=== PATIENT | male | born 1950 | race Caucasian/White ===

== ENCOUNTER 2021-02-09 20:51 | Emergency (ER) | payer OTHER, MEDICARE ==
[~2021-02-09 20:51] MED LIST: Iopamidol 370 76% 100 ML VIAL ONE
[2021-02-09 21:14] LABS: #Eosinphils 0.5 thou/uL (0.0-0.7); #Monocytes 0.7 thou/uL (0.11-0.59); %Basophils 0.3 % (0.0-1.0); %Eosinophils 5.2 % (0.0-10.0); %Lymphocytes 32.7 % (21.0-51.0); %Neutrophils 53.9 % (42.0-75.0); Hemoglobin 15.5 g/dL (14.0-18.0); Mean Corpuscular HGB CONC 35.1 g/dL (32.0-36.0); Mean Corpuscular Hemoglobin 31.5 pg (27.0-31.0); Mean Corpuscular Volume 89.8 fL (78.0-98.0); Mean Platelet Volume 8.8 fL (7.4-10.4); Platelet Count 231 thou/uL (130-400); RBC Distribution Width 12.4 % (11.5-14.5); Red Blood Cell (RBC) Count 4.92 mill/uL (4.70-6.10); White Blood Cell (WBC) Count 9.3 thou/uL (4.8-10.8)
[2021-02-09] MEDS ORDERED: Fentanyl 100 MCG/2 ML VIAL ONE (22:23)
[2021-02-09 22:27] LABS: Albumin 4.2 g/dL (3.4-4.8)
[2021-02-09 22:28] LABS: Chloride 102 mmol/L (98-107); Sodium 137 mmol/L (136-145)
[2021-02-09 22:29] LABS: Calcium 8.9 mg/dL (7.8-10.44); Glucose 172 mg/dL (80-115)
[2021-02-09 22:30] LABS: Globulin 2.5 g/dL (2.4-3.5); Protein, Total 6.7 g/dL (5.8-8.1)
[2021-02-09 22:31] LABS: Anion Gap 13 mmol/L (10-20); Bilirubin, Total 0.7 mg/dL (0.2-1.2); Carbon Dioxide 26 mmol/L (23-31)
[2021-02-09 22:32] LABS: Alkaline Phosphatase 52 U/L (40-110)
[2021-02-09 22:32] LABS: Bacteria/HPF None Seen HPF (None Seen); Bilirubin Negative (Negative); Blood, Urine Negative (Negative); Calcium Oxalate Crystals 1+ HPF (None Seen); Clarity Clear (Clear); Glucose, Urine (Dipstick) 70 mg/dL (Negative); Ketone, Urine Negative (Negative); Leukocyte Negative Leu/uL (Negative); Mucous/LPF Rare LPF (<2+); Nitrite Negative (Negative); Protein, Urine (Dipstick) 50 mg/dL (Neg-Trace); RBC/HPF 0-3 HPF (0-3); Specific Gravity, Urine 1.042 (1.002-1.036); Squamous Epithelial None Seen HPF (0-3); Urobilinogen Normal mg/dL (Less than 2); WBC/HPF 0-3 HPF (0-3)
[2021-02-09 22:33] LABS: Calc. Creatinine Clearance 0 mL/min (70-130)
[2021-02-09 22:34] LABS: BUN (Urea Nitrogen) 14 mg/dL (8.4-25.7)
[2021-02-09 22:35] LABS: ALT (SGPT) 31 U/L (8-55); AST (SGOT) 32 U/L (5-34)
[2021-02-09 22:36] LABS: Lipase 15 U/L (8-78)
[2021-02-09] MEDS ORDERED: Ketorolac Tromethamine 30 MG/ML VIAL ONE (23:18)
== END 2021-02-09 23:24 | disposition home or self-care (01) ==
LOC: ERS 20:51
DX: S50.811A Abrasion of right forearm, initial encounter (principal); S09.90XA Unspecified injury of head, initial encounter; M54.50 Low back pain, unspecified; I10 Essential (primary) hypertension; E11.9 Type 2 diabetes mellitus without complications; E78.00 Pure hypercholesterolemia, unspecified; V89.2XXA Person injured in unspecified motor-vehicle accident, traffic, initial encounter; W22.10XA Striking against or struck by unspecified automobile airbag, initial encounter; Z79.899 Other long term (current) drug therapy
CPT/HCPCS: 36415; 70450; 71045; 71260; 72125; 72170; 74177; 80053; 81003; 81015; 83690; 85025; 93005; 96374; 96375; G0390; J1885; J3010; Q9967

== ENCOUNTER 2021-08-20 14:00 | Outpatient (CLI) | payer MEDICARE ==
[2021-08-20 15:19] LABS: Estimated GFR-MDRD - POC Greater than 90
== END 2021-08-20 14:01 | disposition home or self-care (01) ==
LOC: CT 14:00
PROVIDERS: ATTEND Nurse Practitioner Family
DX: R01.1 Cardiac murmur, unspecified (principal); R06.00 Dyspnea, unspecified; I25.10 Atherosclerotic heart disease of native coronary artery without angina pectoris; I08.3 Combined rheumatic disorders of mitral, aortic and tricuspid valves
CPT/HCPCS: 71260; 82565; 93306

== ENCOUNTER 2024-03-01 06:31 | Day surgery (SDC) | payer MEDICARE ==
[2024-02-27 10:16] VITALS: BMI 26.5
[2024-03-01] MEDS ORDERED: Lidocaine 1% w/Epinephrine 1:100K 20 ML VIAL ONE (07:03)
== END 2024-03-01 09:00 | disposition home or self-care (01) ==
LOC: CCL 06:31
PROVIDERS: ATTEND Internal Medicine Cardiovascular Disease
PROC: 0JH602Z Insertion of Monitoring Device into Chest Subcutaneous Tissue and Fascia, Open Approach (ICD-10-PCS; principal; 2024-03-01)
DX: I48.0 Paroxysmal atrial fibrillation (principal); I11.0 Hypertensive heart disease with heart failure; I50.20 Unspecified systolic (congestive) heart failure; I25.10 Atherosclerotic heart disease of native coronary artery without angina pectoris; I35.0 Nonrheumatic aortic (valve) stenosis; I42.9 Cardiomyopathy, unspecified; E11.9 Type 2 diabetes mellitus without complications; E78.5 Hyperlipidemia, unspecified; K29.51 Unspecified chronic gastritis with bleeding; Z86.73 Personal history of transient ischemic attack (TIA), and cerebral infarction without residual deficits; Z87.891 Personal history of nicotine dependence; Z90.49 Acquired absence of other specified parts of digestive tract; Z90.89 Acquired absence of other organs; Z79.51 Long term (current) use of inhaled steroids; Z79.02 Long term (current) use of antithrombotics/antiplatelets; Z79.84 Long term (current) use of oral hypoglycemic drugs; Z79.899 Other long term (current) drug therapy
CPT/HCPCS: 33285

== ENCOUNTER 2024-11-16 06:20 | Day surgery (SDC) | payer OTHER ==
[2024-11-12 08:18] VITALS: BMI 27.4
[2024-11-12 10:44] LABS: #Basophils 0.04 10x3/uL (0.0-0.2); #Eosinophils 0.25 10x3/uL (0.0-0.7); #Monocytes 0.40 10x3/uL (0.11-0.59); #Neutrophils 3.64 10x3/uL (1.40-6.50); %Basophils 0.6 % (0.0-1.0); %Eosinophils 4.1 % (0.0-10.0); %Lymphocytes 29.5 % (21.0-51.0); %Monocytes 6.5 % (0.0-10.0); %Neutrophils 59.1 % (42.0-75.0); Hematocrit 35.5 % (42.0-52.0); Hemoglobin 12.1 g/dL (14.0-18.0); Mean Corpuscular Hemoglobin 30.0 pg (27.0-31.0); Mean Corpuscular Volume 88.1 fL (78.0-98.0); Platelet Count 157 10x3/uL (130-400); Red Blood Cell (RBC) Count 4.03 mill/uL (4.70-6.10); White Blood Cell (WBC) Count 6.16 10x3/uL (4.8-10.8)
[2024-11-12 11:07] LABS: INR-International Normal Ratio 1.1; PTT 36.7 sec (22.9-36.1); Prothrombin Time 14.5 sec (12.0-14.7)
[2024-11-12 11:42] LABS: ALT (SGPT) 18 U/L (Less than 45); AST (SGOT) 23 U/L (11-34); Albumin 4.1 g/dL (3.1-4.5); Alkaline Phosphatase 57 U/L (40-110); Anion Gap 14 mmol/L (10-20); BUN (Urea Nitrogen) 12 mg/dL (8.4-25.7); Bilirubin, Total 0.6 mg/dL (0.3-1.2); Calc. Creatinine Clearance 97 mL/min (70-130); Calcium 8.6 mg/dL (7.8-10.44); Carbon Dioxide 20 mmol/L (23-31); Chloride 109 mmol/L (98-107); Globulin 2.5 g/dL (2.4-3.5); Glucose 88 mg/dL (83-110); Potassium 3.8 mmol/L (3.5-5.1); Sodium 139 mmol/L (136-145)
[2024-11-13 05:13] LABS: Myoglobin, Serum 44.0 ng/mL (28-72)
[2024-11-16] MEDS ORDERED: Heparin 10,000 UNITS/ 10 ML VIAL ONE (07:03)
[2024-11-16] MEDS ORDERED: Isoproterenol 0.2 MG/1 ML AMP ONE ×3 (07:03→09:38)
[2024-11-16] MEDS ORDERED: SUGAMMADEX SODIUM 200 MG/2 ML VIAL ONE (08:42)
[2024-11-16] MEDS ORDERED: Rocuronium Bromide 10 MG/ML (10ML VIAL) ONE (10:00)
[2024-11-16] MEDS ORDERED: Ondansetron PF 4 MG/2 ML Vial ONE (10:23)
[2024-11-16] MEDS ORDERED: PHENYLEPHRINE-NS 100 MCG/ML 10 ML SYRINGE ONE (11:26)
[2024-11-17 13:38] LABS: Hemoglobin,Free - Plasma 1.0 mg/dL (0.0-4.9)
== END 2024-11-16 15:04 | disposition home or self-care (01) ==
LOC: SDC 06:20
PROVIDERS: ATTEND Internal Medicine Cardiovascular Disease
PROC: B245ZZ4 Ultrasonography of Left Heart, Transesophageal (ICD-10-PCS; principal; 2024-11-16)
DX: I48.0 Paroxysmal atrial fibrillation (principal); I11.0 Hypertensive heart disease with heart failure; I50.9 Heart failure, unspecified; I42.9 Cardiomyopathy, unspecified; E11.9 Type 2 diabetes mellitus without complications; Z79.01 Long term (current) use of anticoagulants
CPT/HCPCS: 80053; 83010; 83051; 83874; 85025; 85347 ×2; 85610; 85730; 86850; 86900; 86901; 93623; 93656; 93657; C1730 ×2; C1733; C1759; C1760; C1766; C1769; C1893; C1894 ×2; J1644 ×2; J2250; J2405; J2720; J3010; 93005

== ENCOUNTER 2024-11-28 13:57 | Inpatient (IN) | payer OTHER ==
[2024-11-28] MEDS ORDERED: Digoxin 0.5 MG/2 ML AMP ONE (14:15)
[2024-11-28] MEDS ORDERED: Ondansetron PF 4 MG/2 ML Vial ONE (14:25)
[2024-11-28] MEDS ORDERED: Aspirin Chewable 81 MG TAB ONE (14:25)
[2024-11-28] MEDS ORDERED: Apixaban 5 MG TAB ONE (14:35)
[2024-11-28 14:51] LABS: #Basophils 0.05 10x3/uL (0.0-0.2); #Eosinophils 0.13 10x3/uL (0.0-0.7); #Monocytes 1.00 10x3/uL (0.11-0.59); #Neutrophils 7.40 10x3/uL (1.40-6.50); %Basophils 0.4 % (0.0-1.0); %Eosinophils 1.1 % (0.0-10.0); %Lymphocytes 25.1 % (21.0-51.0); %Monocytes 8.7 % (0.0-10.0); %Neutrophils 64.2 % (42.0-75.0); Hematocrit 42.6 % (42.0-52.0); Hemoglobin 14.2 g/dL (14.0-18.0); Mean Corpuscular Hemoglobin 29.4 pg (27.0-31.0); Mean Corpuscular Volume 88.2 fL (78.0-98.0); Platelet Count 264 10x3/uL (130-400); Red Blood Cell (RBC) Count 4.83 mill/uL (4.70-6.10); White Blood Cell (WBC) Count 11.54 10x3/uL (4.8-10.8)
[2024-11-28 15:22] LABS: ALT (SGPT) 17 U/L (Less than 45); AST (SGOT) 28 U/L (11-34); Albumin 4.4 g/dL (3.1-4.5); Alkaline Phosphatase 75 U/L (40-110); Anion Gap 25 mmol/L (10-20); BUN (Urea Nitrogen) 8 mg/dL (8.4-25.7); Bilirubin, Total 0.6 mg/dL (0.3-1.2); Calc. Creatinine Clearance 0 mL/min (70-130); Calcium 9.3 mg/dL (7.8-10.44); Carbon Dioxide 19 mmol/L (23-31); Chloride 106 mmol/L (98-107); Globulin 3.4 g/dL (2.4-3.5); Glucose 139 mg/dL (83-110); Magnesium 0.9 mg/dL (1.6-2.6); Potassium 4.0 mmol/L (3.5-5.1); Sodium 146 mmol/L (136-145)
[2024-11-28] MEDS ORDERED: Magnesium 2 GM/50 ML BAG (IN WATER) ONE (15:24)
[2024-11-28] MEDS ORDERED: Calcium Carbonate 500 MG ChewTAB PO PRN (16:23)
[2024-11-28] MEDS ORDERED: Ondansetron PF 4 MG/2 ML Vial IVP PRN (16:23)
[2024-11-28] MEDS ORDERED: Senokot S 8.6-50 MG TAB PO PRN (16:23)
[2024-11-28] MEDS ORDERED: Melatonin 3 MG TAB PO PRN (16:23)
[2024-11-28] MEDS ORDERED: Dextrose 50% Abboject 50 ML SYRINGE SLOW IVP PRN (17:21)
[2024-11-28] MEDS ORDERED: Glucagon 1 MG/ML KIT IM PRN (17:21)
[2024-11-28 19:15] LABS: Magnesium 1.8 mg/dL (1.6-2.6)
[2024-11-28] MEDS: HYDROcodone/Acetaminophen 10/325 mg Tablet PO PRN (23:29)
[2024-11-28] MEDS: Apixaban 5 MG TAB PO SCH (23:30)
[2024-11-28] MEDS: Magnesium 2 GM/50 ML(in water) 2 GM in Premix 1 BAG IVPB SCH (23:30)
[2024-11-28] MEDS: QUEtiapine 25 MG TAB PO SCH (23:30)
[2024-11-28] MEDS: Sacubitril 24MG/Valsartan 26 MG TAB PO SCH (23:51)
[2024-11-29 03:17] VITALS: BMI 25.3
[2024-11-29 05:26] LABS: #Basophils 0.05 10x3/uL (0.0-0.2); #Eosinophils 0.17 10x3/uL (0.0-0.7); #Monocytes 0.53 10x3/uL (0.11-0.59); #Neutrophils 4.17 10x3/uL (1.40-6.50); %Basophils 0.7 % (0.0-1.0); %Eosinophils 2.5 % (0.0-10.0); %Lymphocytes 27.1 % (21.0-51.0); %Monocytes 7.8 % (0.0-10.0); %Neutrophils 61.6 % (42.0-75.0); Hematocrit 36.4 % (42.0-52.0); Hemoglobin 12.1 g/dL (14.0-18.0); Mean Corpuscular Hemoglobin 29.7 pg (27.0-31.0); Mean Corpuscular Volume 89.2 fL (78.0-98.0); Platelet Count 189 10x3/uL (130-400); Red Blood Cell (RBC) Count 4.08 mill/uL (4.70-6.10); White Blood Cell (WBC) Count 6.78 10x3/uL (4.8-10.8)
[2024-11-29 06:10] LABS: ALT (SGPT) 15 U/L (Less than 45); AST (SGOT) 21 U/L (11-34); Albumin 3.4 g/dL (3.1-4.5); Alkaline Phosphatase 55 U/L (40-110); Anion Gap 15 mmol/L (10-20); BUN (Urea Nitrogen) 10 mg/dL (8.4-25.7); Bilirubin, Total 0.4 mg/dL (0.3-1.2); Calc. Creatinine Clearance 81 mL/min (70-130); Calcium 8.1 mg/dL (7.8-10.44); Carbon Dioxide 21 mmol/L (23-31); Chloride 111 mmol/L (98-107); Globulin 2.4 g/dL (2.4-3.5); Glucose 106 mg/dL (83-110); Potassium 3.7 mmol/L (3.5-5.1); Sodium 143 mmol/L (136-145)
[2024-11-29] MEDS ORDERED: Metoprolol Succinate XL 25 MG ER.TAB PO SCH (09:00)
[2024-11-29] MEDS ORDERED: QUEtiapine 25 MG TAB PO SCH (09:00)
[2024-11-29] MEDS: Sacubitril 49 MG/Valsartan 51 MG TABLET PO SCH (11:06)
[2024-11-29] MEDS: QUEtiapine 25 MG TAB PO SCH (11:07)
[2024-11-29] MEDS: Acetaminophen 325 MG TAB PO PRN (11:07)
[2024-11-29] MEDS: Metoprolol Succinate XL 25 MG ER.TAB PO SCH (11:07)
[2024-11-29] MEDS: Pantoprazole 40 MG VIAL IVP SCH (20:35)
[2024-11-30] MEDS: Pantoprazole 40 MG VIAL IVP SCH (10:09)
[2024-11-30] MEDS: Amiodarone 200 MG TAB PO SCH ×2 (10:20→18:06)
[2024-11-30 15:54] VITALS: BP 128/87; TEMP 97.8
== END 2024-11-30 18:19 | disposition home or self-care (01) | DRG 309 ==
LOC: ERS 13:57 → ERHOLD 16:26 → 2NO 22:36
PROVIDERS: ADMIT Internal Medicine; ATTEND Internal Medicine
DX: I48.20 Chronic atrial fibrillation, unspecified (principal); E87.20 Acidosis, unspecified; I50.22 Chronic systolic (congestive) heart failure; E11.9 Type 2 diabetes mellitus without complications; I11.0 Hypertensive heart disease with heart failure; E83.42 Hypomagnesemia; E78.00 Pure hypercholesterolemia, unspecified; N40.0 Benign prostatic hyperplasia without lower urinary tract symptoms; F03.90 Unspecified dementia, unspecified severity, without behavioral disturbance, psychotic disturbance, mood disturbance, and anxiety; E07.81 Sick-euthyroid syndrome; F32.A Depression, unspecified; I25.10 Atherosclerotic heart disease of native coronary artery without angina pectoris; I48.0 Paroxysmal atrial fibrillation; Z98.890 Other specified postprocedural states; Z90.49 Acquired absence of other specified parts of digestive tract; Z79.899 Other long term (current) drug therapy; Z87.891 Personal history of nicotine dependence
CPT/HCPCS: 36415; 36416; 71045; 80053; 83735; 83880; 84443; 84484; 85025; 93005; 93306; 94760; 96361; 96365; 96366; 96374; 96375; 99292; J0282; J1160; J2405; J2470; J3475; J7070; J7120

== ENCOUNTER 2025-03-15 17:01 | Emergency (ER) | payer MEDICARE, OTHER ==
[2025-03-15 18:41] LABS: #Basophils 0.03 10x3/uL (0.0-0.2); #Eosinophils 0.19 10x3/uL (0.0-0.7); #Monocytes 0.49 10x3/uL (0.11-0.59); #Neutrophils 8.92 10x3/uL (1.40-6.50); %Basophils 0.3 % (0.0-1.0); %Eosinophils 1.9 % (0.0-10.0); %Lymphocytes 5.8 % (21.0-51.0); %Monocytes 4.8 % (0.0-10.0); %Neutrophils 86.8 % (42.0-75.0); Hematocrit 36.4 % (42.0-52.0); Hemoglobin 12.1 g/dL (14.0-18.0); Mean Corpuscular Hemoglobin 29.4 pg (27.0-31.0); Mean Corpuscular Volume 88.3 fL (78.0-98.0); Platelet Count 161 10x3/uL (130-400); Red Blood Cell (RBC) Count 4.12 mill/uL (4.70-6.10); White Blood Cell (WBC) Count 10.27 10x3/uL (4.8-10.8)
[2025-03-15 19:09] LABS: ALT (SGPT) 115 U/L (Less than 45); AST (SGOT) 172 U/L (11-34); Albumin 3.7 g/dL (3.1-4.5); Alkaline Phosphatase 77 U/L (40-110); Anion Gap 15 mmol/L (10-20); BUN (Urea Nitrogen) 17 mg/dL (8.4-25.7); Bilirubin, Total 0.7 mg/dL (0.3-1.2); Calc. Creatinine Clearance 0 mL/min (70-130); Calcium 8.5 mg/dL (7.8-10.44); Carbon Dioxide 24 mmol/L (23-31); Chloride 101 mmol/L (98-107); Globulin 3.3 g/dL (2.4-3.5); Glucose 83 mg/dL (83-110); Magnesium 0.9 mg/dL (1.6-2.6); Potassium 4.1 mmol/L (3.5-5.1); Sodium 136 mmol/L (136-145)
[2025-03-15] MEDS ORDERED: Furosemide 40 MG (4 mL) VIAL ONE (20:46)
== END 2025-03-15 21:04 | disposition home or self-care (01) ==
LOC: ERS 17:01
DX: J06.9 Acute upper respiratory infection, unspecified (principal); I50.9 Heart failure, unspecified; R06.2 Wheezing; I10 Essential (primary) hypertension; E11.9 Type 2 diabetes mellitus without complications; Z86.73 Personal history of transient ischemic attack (TIA), and cerebral infarction without residual deficits; Z87.891 Personal history of nicotine dependence
CPT/HCPCS: 71045; 80053; 83735; 83880; 84484; 85025; 87428; 93005; J1940; J2919; 96374; 96375